=== PATIENT | female | born 1985 | race Caucasian/White ===

== ENCOUNTER → 2016-08-07 | Outpatient (CLI) | payer OTHER | END | disposition home or self-care (01) | LOC: LABWHC1 11:21 | PROVIDERS: ATTEND Physician Assistant | DX: E05.00 Thyrotoxicosis with diffuse goiter without thyrotoxic crisis or storm (principal) | CPT/HCPCS: 36415; 84439; 84443; 84481 ==

== ENCOUNTER → 2024-01-25 | Outpatient (CLI) | payer OTHER ==
--- NOTE | 2024-01-25 14:27 | US ---
EXAMINATION TYPE: US thyroid st tissue head/neck DATE OF EXAM: 01/25/2024 COMPARISON: NONE CLINICAL INDICATION: Female, 38 years old with history of E03.8 HYPOTHYROIDISM; hypothyroidism. Pt hicks s been on thyroid medication for 3 years TECHNIQUE: Grayscale and color Doppler imaging of the thyroid gland. FINDINGS: GLAND SIZE: Right Lobe: 4.1 x 1.2 x 1.2 cm Overall Parenchyma: heterogeneous Left Lobe: 3.5 x 1.7 x 1.1 cm Overall Parenchyma: heterogeneous Isthmus Thickness: 0.22 cm NODULES RIGHT: # of nodules measured on right: 0 LEFT: # of nodules measured on left: 0 ISTHMUS: # of nodules measured in the isthmus: 1 1. 0.5 X 0.6 x 0.3 cm solid or almost completely solid, hyperechoic nodule, which is wider than mary l, with smooth margins, calcified. Macrocalcification nodule. Bilateral neck scanned, no evidence of lymphadenopathy. Overall heterogeneous thyroid bilaterally IMPRESSION: Diffuse heterogenous thyroid gland with isthmus macrocalcification. [facility], , 01/25/2024 2:24 PM
== END | disposition home or self-care (01) ==
LOC: LABWHC1 13:25
PROVIDERS: ATTEND Internal Medicine Endocrinology, Diabetes & Metabolism
DX: E03.9 Hypothyroidism, unspecified (principal)
CPT/HCPCS: 36415; 76536; 84443

== ENCOUNTER → 2024-07-18 | Outpatient (CLI) | payer OTHER ==
[2024-07-18 15:09] LABS: Basophils # (A) 0.05 X 10*3/uL (0.00-0.10); Basophils % (A) 1.4 %; Eosinophils # (A) 0.01 X 10*3/uL (0.04-0.35); Eosinophils % (A) 0.3 %; HCT 31.5 % (37.2-46.3); HGB 9.6 g/dL (12.0-15.0); Immature Grans, Automated 0 %; Lymphocytes % (A) 44.6 %; MCH 24.9 pg (27.0-32.0); MCHC 30.5 g/dL (32.0-37.0); MCV 81.8 FL (80.0-97.0); Mean Platelet Volume 10.2 FL (9.5-12.2); Monocytes # (A) 0.34 X 10*3/uL (0.20-1.00); Monocytes % (A) 9.5 %; NRBC Per 100 WBC 0 X 10*3/uL (0.00-0.01); Neutrophils # (A) 1.59 X 10*3/uL (1.80-7.70); Neutrophils % (A) 44.2 %; Platelet Count 219 X 10*3/uL (140-440); RBC 3.85 X 10*6/uL (4.10-5.20); RDW 16.2 % (11.5-14.5); WBC 3.59 X 10*3/uL (4.50-10.00)
[2024-07-18 15:43] LABS: Chol/HDL Ratio 2.22 Ratio
[2024-07-18 15:44] LABS: ALT 12 U/L (8-44); AST 17 U/L (13-35); Albumin 4.5 g/dL (3.8-4.9); Albumin/Globulin Ratio 1.73 Ratio (1.60-3.17); Alkaline Phosphatase 52 U/L (41-126); Blood Urea Nitrogen 12.6 mg/dL (9.0-27.0); Carbon Dioxide 22.2 mmol/L (21.6-31.8); Chloride 108 mmol/L (96-109); Globulin 2.6 g/dL (1.6-3.3); Glucose 95 mg/dL (70-110); LDL Cholesterol,Calculated 83.6 mg/dL (0.0-131.0); Potassium 4.1 mmol/L (3.5-5.5); Sodium 140 mmol/L (135-145); T4, Free (Free Thyroxine) 1.52 ng/dL (0.80-1.80); Total Bilirubin 0.4 mg/dL (0.3-1.2); Total Protein 7.1 g/dL (6.2-8.2)
== END | disposition home or self-care (01) ==
LOC: LABWHC1 08:21
PROVIDERS: ATTEND Pediatrics
DX: Z00.00 Encounter for general adult medical examination without abnormal findings (principal); Z13.220 Encounter for screening for lipoid disorders; E04.1 Nontoxic single thyroid nodule; E05.90 Thyrotoxicosis, unspecified without thyrotoxic crisis or storm
CPT/HCPCS: 36415; 80053; 80061; 84439; 84443; 85025

== ENCOUNTER → 2024-08-13 | Outpatient (CLI) | payer OTHER ==
--- NOTE | 2024-08-14 07:01 | MM ---
Reason for Exam: Screening (asymptomatic). Patient History: Menarche at age 11. First Full-Term at age 22. Premenopausal. Maternal grandmother had breast cancer, age 40. Maternal aunt had breast cancer, age 52. Risk Values: Shara 5 year model risk: 0.4%. NCI Lifetime model risk: 10.0%. Tissue Density: The breasts are heterogeneously dense, which may obscure small masses. Findings: Analyzed By CAD. There is no suspicious group of microcalcifications or suspicious mass in either breast. Overall Assessment: Negative, BI-RAD 1 Management: Screening Mammogram of both breasts at age 41. . Patient should continue monthly self-breast exams. A clinical breast exam by your physician is recommended on an annual basis. This exam should not preclude additional follow-up of suspicious palpable abnormalities. Note on Shara scores and lifetime risk: 1. A Shara score greater than 3% is considered moderate risk. If this is the case, consider specialist referral to assess eligibility for a risk reducing agent. 2. If overall lifetime risk for the development of breast cancer is 20% or higher, the patient may qualify for future screening with alternating mammogram and breast MRI. [facility], , 08/14/2024 6:59 AM. Electronically signed and approved by: Jeff Valdez M.D.
== END | disposition home or self-care (01) ==
LOC: RADMAMWWP 15:36
PROVIDERS: ATTEND Pediatrics
DX: Z12.31 Encounter for screening mammogram for malignant neoplasm of breast (principal); R92.333 Mammographic heterogeneous density, bilateral breasts; Z80.3 Family history of malignant neoplasm of breast
CPT/HCPCS: 77067